=== PATIENT | female | born 1975 | race Caucasian/White ===

== ENCOUNTER 2021-07-14 14:02 | Emergency (ER) | payer MEDICAID, OTHER ==
[2021-07-14] MEDS ORDERED: SODIUM CHLORIDE 0.9% 1,000 ML IV STA (14:33)
[2021-07-14] MEDS ORDERED: METOCLOPRAMIDE 10 MG/2 ML VIAL IVP STA (14:33)
--- NOTE | 2021-07-14 14:34 | ED Physician Documentation ---
PD HPI ABD PAIN - Stated complaint Stated Complaint: N/V - Chief complaint Chief Complaint: Abd Pain - History obtained from History obtained from: Patient - Additional information Additional information: 45-year-old woman with history of hysterectomy and ulcerative colitis and IBS became acutely ill this morning with vomiting and diarrhea as well as diffuse abdominal cramping. No blood from either end. No fevers. This is not typical for her UC flares. No sick contacts or recent travel. Review of Systems Ten Systems: 10 systems reviewed and negative Constitutional: denies: Fever, Chills Nose: reports: Reviewed and negative Throat: reports: Reviewed and negative Cardiac: reports: Reviewed and negative PD PAST MEDICAL HISTORY - Present Medications Home Medications: Ambulatory Orders Medication Instructions Recorded Confirmed Dicyclomine [Bentyl] 1 - 2 tab PO QID PRN #20 cap 07/14/21 Dicyclomine [Bentyl] 20 mg PO QID PRN 07/14/21 07/14/21 Duloxetine HCl [Cymbalta] 60 mg PO BID 07/14/21 07/14/21 Mv-Mn/FA/Bl Coh/Isoflav/Jujube 1 each PO DAILY 07/14/21 07/14/21 [Estroven Menopause Caplet] Ondansetron Odt [Zofran] 4 mg TL Q6H PRN #10 tablet 07/14/21 Promethazine [Phenergan] 25 mg PO Q6H PRN #10 tab 07/14/21 Sucralfate [Carafate] 1 tablet PO ACHS PRN 07/14/21 07/14/21 - Allergies Allergies/Adverse Reactions: Allergies Allergy/AdvReac Type Severity Reaction Status Date / Time gabapentin Allergy Unknown Verified 07/14/21 14:13 Penicillins Allergy Hives Verified 07/14/21 14:13 tramadol Allergy Unknown Verified 07/14/21 14:13 PD ED PE NORMAL - Vitals Vital signs reviewed: Yes - General General: Alert and oriented X 3, Other (She is retching and appears uncomfortable) - Cardiac Cardiac: RRR, No murmur - Respiratory Respiratory: No respiratory distress, Clear bilaterally - Abdomen Abdomen: Normal bowel sounds, Soft, Non tender - Derm Derm: Normal color, Warm and dry - Extremities Extremities: No edema, No calf tenderness / cord - Neuro Neuro: Alert and oriented X 3, Normal speech Results - Vitals Vitals: Vital Signs - 24 hr 07/14/21 07/14/21 07/14/21 14:13 14:42 14:45 Temperature 36.3 C L Heart Rate 59 L 50 L Respiratory 28 H 18 Rate Blood Pressure 172/78 H 168/79 H O2 Saturation 100 100 07/14/21 07/14/21 15:15 15:58 Temperature 36.2 C L Heart Rate 58 L Respiratory 16 Rate Blood Pressure 140/80 H 152/72 H O2 Saturation 100 Oxygen O2 Source Room air - Labs Labs: Laboratory Tests 07/14/21 07/14/21 07/14/21 14:25 14:25 15:15 WBC 11.1 H RBC 4.64 Hgb 15.0 Hct 43.8 MCV 94.4 MCH 32.3 H MCHC 34.2 RDW 13.2 Plt Count 340 MPV 10.6 Neut # (Auto) 7.6 H Lymph # (Auto) 2.8 Jay # (Auto) 0.5 Eos # (Auto) 0.1 Baso # (Auto) 0.0 Absolute Nucleated RBC 0.00 Nucleated RBC % 0.0 Sodium 139 Potassium 3.4 L Chloride 104 Carbon Dioxide 24 Anion Gap 11.0 BUN 7 Creatinine 0.7 Estimated GFR (MDRD) 90 Glucose 128 H Calcium 9.6 Total Bilirubin 0.8 AST 18 ALT 14 Alkaline Phosphatase 85 Total Protein 7.5 Albumin 4.5 Globulin 3.0 Albumin/Globulin Ratio 1.5 Lipase 33 Urine Color YELLOW Urine Clarity CLEAR Urine pH 7.5 Ur Specific [place] 1.020 Urine Protein NEGATIVE Urine Glucose (UA) NEGATIVE Urine Ketones 40 H Urine Occult Blood NEGATIVE Urine Nitrite NEGATIVE Urine Bilirubin NEGATIVE Urine Urobilinogen 0.2 (NORMAL) Ur Leukocyte Esterase NEGATIVE Ur Microscopic Review NOT INDICATED Urine Culture Comments NOT INDICATED PD MEDICAL DECISION MAKING - ED course ED course: 45-year-old woman presents with a syndrome consistent with gastroenteritis. No abdominal tenderness. She was treated with IV fluids antiemetics here with success and passed an oral challenge. On repeat examination prior to discharge feeling much better and remained nontender. Close follow-up prescriptions were discussed. Departure - Departure Disposition: Home, Self Care Clinical Impression: Gastroenteritis Condition: Good Record reviewed to determine appropriate education?: Yes Instructions: ED Gastroenteritis Viral Prescriptions: Dicyclomine [Bentyl] 1 - 2 tab PO QID PRN #20 cap PRN Reason: Abdominal Pain Promethazine [Phenergan] 25 mg PO Q6H PRN #10 tab PRN Reason: Nausea / Vomiting Ondansetron Odt [Zofran] 4 mg TL Q6H PRN #10 tablet PRN Reason: Nausea / Vomiting Comments: Return in 24 hours if not better, anytime if worsening or if new symptoms develop especially fever or if your symptoms are not able to be managed with the medications I am prescribing. Your blood pressure was elevated today on check into the emergency department. This does not mean that you have hypertension, it is a common phenomenon to come to the emergency department and have elevated blood pressure. I recommend that you see your primary care physician within the week to have it rechecked when you are feeling better.
[2021-07-14 14:35] LABS: BASOPHILS % (AUTO) 0.4 %; EOSINOPHILS # (AUTO) 0.1 10^3/uL (0.0-0.7); EOSINOPHILS % (AUTO) 0.5 %; HCT - HEMATOCRIT 43.8 % (37.0-47.0); LYMPHOCYTES # (AUTO) 2.8 10^3/uL (1.5-3.5); LYMPHOCYTES % (AUTO) 25.3 %; MEAN CORPUSCULAR HEMOGLOBIN 32.3 pg (27.0-31.0); MEAN CORPUSCULAR HGB CONC 34.2 g/dL (32.0-36.0); MEAN CORPUSCULAR VOLUME 94.4 fL (81.0-99.0); MEAN PLATELET VOLUME 10.6 fL (7.9-10.8); MONOCYTES # (AUTO) 0.5 10^3/uL (0.0-1.0); MONOCYTES % (AUTO) 4.6 %; NEUTROPHILS # (AUTO) 7.6 10^3/uL (1.5-6.6); NEUTROPHILS % (AUTO) 68.8 %; PLT - PLATELET COUNT 340 10^3/uL (130-450); RED BLOOD COUNT 4.64 10^6/uL (4.20-5.40); RED CELL DISTRIBUTION WIDTH 13.2 % (12.0-15.0); WHITE BLOOD COUNT 11.1 x10^3/uL (4.8-10.8)
[2021-07-14 14:50] LABS: ALBUMIN 4.5 g/dL (3.2-5.5); ALBUMIN/GLOBULIN RATIO 1.5 (1.0-2.2); BILIRUBIN,TOTAL 0.8 mg/dL (0.2-1.0); CALCIUM 9.6 mg/dL (8.5-10.3); CREATININE 0.7 mg/dL (0.4-1.0); POTASSIUM 3.4 mmol/L (3.5-5.0); TOTAL PROTEIN 7.5 g/dL (6.7-8.2)
[2021-07-14] MEDS ORDERED: ONDANSETRON 4 MG/2 ML VIAL IVP STA (15:20)
[2021-07-14] MEDS ORDERED: KETOROLAC 30 MG/ML VIAL IVP STA (15:20)
[2021-07-14 15:31] LABS: BILIRUBIN,URINE NEGATIVE (NEGATIVE); GLUCOSE, URINE (UA) NEGATIVE (NEGATIVE); KETONES,URINE (UA) 40 mg/dL (NEGATIVE); LEUKOCYTE ESTERASE, URINE NEGATIVE (NEGATIVE); NITRITE,URINE NEGATIVE (NEGATIVE); OCCULT BLOOD,URINE NEGATIVE (NEGATIVE); PH,URINE 7.5 PH (5.0-7.5); PROTEIN,URINE NEGATIVE (NEGATIVE); UROBILINOGEN,URINE 0.2 (NORMAL) E.U./dL (NORMAL)
[2021-07-14 15:33] LABS: CLARITY,URINE CLEAR (CLEAR)
[2021-07-14] MEDS ORDERED: HALOPERIDOL 5 MG/ML VIAL IVP ONE (15:48)
[2021-07-14 17:14] VITALS: BP 135/79
== END 2021-07-14 17:25 | disposition home or self-care (01) ==
LOC: ED 14:02
DX: K52.9 Noninfective gastroenteritis and colitis, unspecified (principal); R03.0 Elevated blood-pressure reading, without diagnosis of hypertension
CPT/HCPCS: 36415; 80053; 81003; 83690; 85025; 96374; 96375; 99284; 99285; J2765; 81001; 87086